=== PATIENT | male | born 1990 | race Caucasian/White ===

== ENCOUNTER 2018-01-15 11:41 | Emergency (ER) | payer OTHER ==
--- NOTE | 2018-01-15 12:19 | ED ---
Abdominal Pain/Male - HPI Summary HPI Summary: This patient is a 27 year old M BIBA from [facility] to ED with a chief complaint of lower mid abdominal pain while going to the bathroom this morning at 0830. He then lost consciousness and hit his head on the floor. Since pain this morning, the patient has urinated twice. Patient reports the pain felt like a kidney stone although he has no PMHx of kidney stone. Symptoms aggravated by nothing. Symptoms alleviated by spontaneous resolution. Patient reports CHANG currently (2/ 10 in severity) and nausea (alleviated by Zofran 8mg given at [facility]). Patient denies hematuria and frequency. - History of Current Complaint Chief Complaint: EDSyncope Stated Complaint: POSS CONCUSSION,ABD PAIN Time Seen by Provider: 01/15/18 11:54 Hx Obtained From: Patient Onset/Duration: Sudden Onset, Resolved Severity Currently: Mild Pain Intensity: 2 Pain Scale Used: 0-10 Numeric - for his CHANG Location: Other - lower mid abdominal pain Aggravating Factor(s): Nothing Alleviating Factor(s): Spontaneous Resolution - abdominal pain is now resolved, Medications - zofran 8 mg alleviated nausea Associated Signs And Symptoms: Positive: Other - Patient reports CHANG currently (2 /10 in severity) and nausea (alleviated by Zofran 8mg given at [facility]). Patient denies hematuria and frequency. - Allergies/Home Medications Allergies/Adverse Reactions: Allergies Allergy/AdvReac Type Severity Reaction Status Date / Time No Known Allergies Allergy Verified 01/15/18 12:37 PMH/Surg Hx/FS Hx/Imm Hx Endocrine/Hematology History: Denies: Hx Diabetes Cardiovascular History: Denies: Hx Coronary Artery Disease, Hx Hypertension History: Denies: Hx Kidney Stones - Immunization History Date of Tetanus Vaccine: < 10 Immunizations Up to Date: Yes Infectious Disease History: No Infectious Disease History: Denies: Traveled Outside the [place] in Last 30 Days - Family History Known Family History: Negative: Cardiac Disease, Hypertension, Diabetes - Social History Alcohol Use: Rare Alcohol Amount: "every other month" Substance Use Type: Reports: None Smoking Status (MU): Never Smoked Tobacco Review of Systems Positive: Abdominal Pain - lower mid abdominal pain, Nausea Negative: frequency, hematuria Positive: Other - haed trauma after LOC Neurological: Other - LOC Positive: Headache All Other Systems Reviewed And Are Negative: Yes Physical Exam - Summary Physical Exam Summary: Appearance: Well appearing, no pain distress Skin: warm, dry, reflects adequate perfusion Head/face: normal Eyes: EOMI, LALO ENT: normal Neck: supple, non-tender Respiratory: CTA, breath sounds present Cardiovascular: RRR, pulses symmetrical Abdomen: non-tender, soft Bowel: present Musculoskeletal: normal, strength/ROM intact Neuro: normal, sensory motor intact, A&Ox3 GCS: 15 Triage Information Reviewed: Yes Vital Signs On Initial Exam: Initial Vitals Temp Pulse Resp BP Pulse Ox 98.7 F 61 13 138/78 99 01/15/18 11:53 01/15/18 11:53 01/15/18 11:53 01/15/18 11:53 01/15/18 11:53 Vital Signs Reviewed: Yes Diagnostics - Vital Signs Vital Signs Temp Pulse Resp BP Pulse Ox 01/15/18 11:53 98.7 F 61 13 138/78 99 - Laboratory Result Diagrams: 01/15/18 12:19 01/15/18 12:19 Lab Statement: Any lab studies that have been ordered have been reviewed, and results considered in the medical decision making process. - CT Brain CT CT Interpretation Completed By: Radiologist - NO EVIDENCE FOR ACUTE INTRACRANIAL ABNORMALITY. ED physician has reviewed this radiology report. Abd/Pel CT CT Interpretation Completed By: Radiologist - No evidence of obstructive uropathy is noted. No other masses or fluid collections are noted. ED physician has reviewed this radiology report. - EKG 1233 Cardiac Rate: Bradycardia - 59 BPM EKG Rhythm: Sinus Bradycardia EKG Interpretation: No acute changes Re-Evaluation - Re-Evaluation First Eval Re-Evaluation Time: 15:32 Comment: Patient is doing better. Discussed plan for discharge. Patient understands and agrees with this plan. Abdominal Pain Fem Course/Dx - Course Assessment/Plan: This patient is a 27 year old M BIBA from [facility] to ED with a chief complaint of lower mid abdominal pain while going to the bathroom this morning at 0830. Blood work/UA obtained. Brain CT reveals NO EVIDENCE FOR ACUTE INTRACRANIAL ABNORMALITY. Abd/Pel CT reveals no evidence of obstructive uropathy is noted. No other masses or fluid collections are noted. EKG done at 1233 reveals sinus anuradha at 59 BPM and no acute changes. This patient will be discharged. Patient understands and agrees with this plan. - Diagnoses Differential Diagnosis/HQI/PQRI: Appendicitis, Gall Bladder Disease, Pancreatitis, Renal Colic, Ureteral Stone, Other - head injury, flank pain Provider Diagnoses: Head injury, Flank pain Discharge - Sign-Out/Discharge Documenting (check all that apply): Patient Departure - discharge - Discharge Plan Condition: Stable Disposition: HOME Patient Education Materials: Head Injury (ED), Flank Pain (ED) Referrals: [facility] [Outside] - 3 Days Additional Instructions: PLEASE RETURN TO THE ED FOR ANY NEW OR WORSENING SYMPTOMS. - Billing Disposition and Condition Condition: STABLE Disposition: Home - Attestation Statements Document Initiated by Scribe: Yes Documenting Scribe: Yosvany Larkin Provider For Whom Scribe is Documenting (Include Credential): Rodney Yi MD Scribe Attestation: Yosvany Correia, scribed for Rodney Yi MD on 01/15/18 at 1611. Scribe Documentation Reviewed: Yes Provider Attestation: The documentation as recorded by the Yosvany gordillo accurately reflects the service I personally performed and the decisions made by , Rodney Yi MD
[2018-01-15 12:36] LABS: ABS Basophils 0 10^3/ul (0-0.2); ABS Eosinophils 0 10^3/ul (0-0.6); ABS Lymphocytes 0.7 10^3/ul (1.0-4.8); ABS Monocytes 0.3 10^3/ul (0-0.8); ABS Neutrophils 5.1 10^3/ul (1.5-7.7); ABS Nucleated RBC 0 10^3/ul; Eosinophil % 0.1 % (0-6); Hematocrit 44 % (42-52); Hemoglobin 15.1 g/dl (14.0-18.0); Lymphocyte % 11.6 % (25-47); Mean Corpuscular HGB Conc 35 g/dl (31-36); Mean Corpuscular Hemoglobin 32 pg (27-31); Mean Corpuscular Volume 92 fL (80-94); Nucleated Red Blood Cells % 0.1; Platelet Count 201 10^3/ul (150-450); Red Blood Count 4.73 10^6/ul (4.00-5.40); Red Cell Distribution Width 13 % (10.5-15); White Blood Count 6.1 10^3/ul (3.5-10.8)
[2018-01-15 12:46] LABS: EGFR Non-African American 81.6 (>60)
--- NOTE | 2018-01-15 12:56 | RAD ---
INDICATION: Head injury, syncope. COMPARISON: There are no relevant prior studies available for comparison. TECHNIQUE: Contiguous axial sections of the brain were obtained from the skull base to the vertex without contrast. FINDINGS: The ventricles, cisterns and sulci are within normal limits. No significant focal abnormality or mass effect is seen. There is no evidence for hemorrhage. No significant focal osseous abnormality is seen. The visualized portion of the paranasal sinuses and mastoid air cells appear clear. IMPRESSION: NO EVIDENCE FOR ACUTE INTRACRANIAL ABNORMALITY.
--- NOTE | 2018-01-15 13:09 | RAD ---
Indication: Left flank pain, renal colic. CT of the abdomen and pelvis was performed without oral or IV contrast administration. Coronal and sagittal reconstructed images were obtained. Lung bases demonstrate no pleural fluid, nodules or masses. Heart is normal size without evidence of pericardial effusion. Liver is normal in size. No focal lesions or intrahepatic duct dilatation is noted. The gallbladder demonstrates no calcified gallstones. No pericholecystic fluid or wall thickening is noted. The spleen is normal in size. No adrenal lesions are noted. The kidneys demonstrates no hydronephrosis in either kidney. No retroperitoneal lymphadenopathy is noted. No dilated loops of bowel are noted. Aorta and inferior vena cava is noted. The colon is filled with stool. There is stool throughout the colon. No dilated loops of bowel are noted. The visualized bony structures are grossly unremarkable. IMPRESSION: No evidence of obstructive uropathy is noted. No other masses or fluid collections are noted.
[2018-01-15 15:18] LABS: Urine Appearance Clear; Urine Color Yellow; Urine Specific Gravity 1.005 (1.010-1.030)
[2018-01-15 15:19] LABS: Urine Blood Negative (Negative); Urine Ketones Negative (Negative); Urine Protein Negative (Negative); Urine Urobilinogen Negative (Negative)
[2018-01-15 15:59] VITALS: BP 131/69
== END 2018-01-15 15:58 | disposition home or self-care (01) ==
LOC: ED 11:41
DX: S06.9X9A Unspecified intracranial injury with loss of consciousness of unspecified duration, initial encounter (principal); W19.XXXA Unspecified fall, initial encounter; Y92.9 Unspecified place or not applicable; R10.30 Lower abdominal pain, unspecified; R00.1 Bradycardia, unspecified
CPT/HCPCS: 36415; 70450; 74176; 80053; 81003; 83690; 84484; 85025; 93005; 99282